=== PATIENT | male | born 1955 | race Caucasian/White ===

== ENCOUNTER → 2017-11-04 | Outpatient (CLI) | payer BC ==
--- NOTE | 2017-11-04 11:47 | DIAGNOSTIC IMAGING REPORT ---
R FOOT MIN 3 VIEWS ROUTINE CLINICAL HISTORY: Right foot pain and swelling. Evaluate for stress fracture. COMPARISON: None FINDINGS: Tarsometatarsal joints are intact. No fracture or suspicious lesion within the right foot is identified. There is no radiographic evidence of a stress fracture. There is minimal posterior and plantar calcaneal spurring. There is mild osteoarthritis within the right midfoot and mild to moderate osteoarthritis within the right first metatarsophalangeal joint. IMPRESSION: 1. No acute fracture or dislocation within the right foot. No radiographic evidence of a stress fracture. 2. 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 Electronically signed by: Chuy Lowery M.D. 11/04/2017 11:45 AM Dictated Date/Time: 11/04/2017 11:43 AM
== END | disposition home or self-care (01) ==
LOC: C.RAD1850 11:28
PROVIDERS: ATTEND Physician Assistant
DX: M79.89 Other specified soft tissue disorders (principal)

== ENCOUNTER → 2018-03-11 | Outpatient (CLI) | payer OTHER ==
--- NOTE | 2018-03-11 12:08 | DIAGNOSTIC IMAGING REPORT ---
C-SPINE ROUTINE 4 OR 5 VIEWS CLINICAL HISTORY: NECK/BACK PAIN COMPARISON STUDY: No previous studies for comparison. FINDINGS: Alignment of the cervical spine is anatomic. No fracture or suspicious lesion is present. Minimal displaced narrowing is noted at several levels. There is mild osteophytosis. There is moderate to severe multilevel facet arthrosis result in neural foraminal narrowing at several levels. IMPRESSION: 1. No cervical spine fracture or subluxation. 2. Mild multilevel degenerative disc disease and severe multilevel facet arthrosis which results in severe neural foraminal narrowing at several levels. Electronically signed by: Chuy Lowery M.D. 03/11/2018 12:06 PM Dictated Date/Time: 03/11/2018 12:05 PM
--- NOTE | 2018-03-11 12:13 | DIAGNOSTIC IMAGING REPORT ---
THORACIC SPINE 3 VIEWS ROUTINE HISTORY: Pain NECK/BACK PAIN COMPARISON: None. FINDINGS: There is no fracture. No subluxation. Considerable degenerative disc change throughout. Anterior osteophytic formation throughout the entire thoracic region. No evidence for an acute compression deformity. IMPRESSION: Considerable degenerative disc change. No acute process. The above report was generated using voice recognition software. It may contain grammatical, syntax or spelling errors. Electronically signed by: Ashok Aldridge M.D. 03/11/2018 12:11 PM Dictated Date/Time: 03/11/2018 12:08 PM
== END | disposition home or self-care (01) ==
LOC: C.RAD1850 11:25
PROVIDERS: ATTEND Nurse Practitioner
DX: M54.2 Cervicalgia (principal); M54.9 Dorsalgia, unspecified